=== PATIENT | female | born 1955 | race Caucasian/White ===

== ENCOUNTER 2024-08-23 22:18 | Emergency (ER) | payer OTHER ==
[2024-08-23] MEDS ORDERED: LIDOCAINE 1% 20 ML MDV ONE (22:43)
[2024-08-23] MEDS ORDERED: LIDOCAINE VISCOUS 2% 10ML ORAL SOLN ONE (23:11)
--- NOTE | 2024-08-23 23:51 | EDPHYS ---
Physician Documentation [facility] Name: Louann Arias Age: 68 yrs Sex: Female : 1955 Arrival Date: 08/23/2024 Time: 22:18 Bed 20 Private MD: ED Physician Brent Cortes HPI: 08/23 23:22 This 68 yrs old Female presents to ER via Ambulatory with complaints of ec2 Foreign Body In Ear - left bug. 23:22 Patient arrives today for foreign body in the left ear. States that she feels like ec2 cockroach in there that it had flown in there. Denies any other concerns. She tried to irrigate it out without success. Historical: - Allergies: 22:34 No Known Allergies; lg3 - PMHx: 22:34 Hypertension; Parkinson's disease; lg3 - PSHx: 22:34 None; lg3 - Immunization history:: Adult Immunizations up to date. - Infectious Disease History:: Denies. - Social history:: Smoking status: Patient denies any tobacco usage or history of. Patient uses alcohol, occasionally. Patient/guardian denies using street drugs. ROS: 23:22 Constitutional: as per hpi ec2 Exam: 23:22 Constitutional: GEN: NAD Head: atraumatic Eyes: EOMI Ears: External ears are normal. ec2 Retained foreign body in left ear CV: regular rate LUNGS: no respiratory distress ABD: non-distended SKIN: no evidence of rashes MSK: no evidence of trauma Vital Signs: 22:32 BP 168 / 88; Pulse 63; Resp 16 S; Temp 97.8(O); Pulse Ox 97% on R/A; Weight 63.96 kg lg3 (R); Height 5 ft. 4 in. (R); 08/24 00:02 BP 148 / 93; Pulse 84; Resp 20; Temp 98; Pulse Ox 99% on R/A; aa10 08/23 22:32 Body Mass Index 24.20 (63.96 kg, 162.56 cm) lg3 Procedures: 08/23 23:49 Foreign Body Removal: an insect, from the left ear canal, by using a curette, normal ec2 saline irrigation, The patient tolerated the removal well. MDM: 22:35 Medical Screening Exam initiated ec2 23:22 Data reviewed: vital signs, nurses notes. ED course: Patient arrives today with ec2 retained foreign body in the left ear. Examination as above. Will attempt irrigation to remove.. 23:49 ED course: I was able to successfully remove a large flying insect from the left ear. ec2 Patient discharged home. Return precautions given.. Administered Medications: 22:45 Drug: Lidocaine Infiltration (1 %) 10 ml 20 ml Infiltration once; to bedside Volume: 20 aa10 ml; Route: Infiltration; 08/24 00:15 Follow up: Response: No adverse reaction; Marked relief of symptoms aa10 08/23 23:16 Drug: Viscous Lidocaine Mucous Membrane Liquid (4 %) 10 ml Mucous Membrane once Route: lg3 Mucous Membrane; 08/24 00:14 Follow up: Response: No adverse reaction; Marked relief of symptoms aa10 Disposition Summary: 08/23/24 23:49 Discharge Ordered Notes: Location: Home ec2 Condition: Stable ec2 Diagnosis - Foreign body in left ear ec2 Followup: ec2 - With: Private Physician - When: - Reason: Re-evaluation by your physician Discharge Instructions: - Discharge Summary Sheet ec2 - Ear Foreign Body, [id number] ec2 Forms: - Medication Reconciliation Form ec2 - Antibiotic Education ec2 - Prescription Opioid Use ec2 - Patient Portal Instructions ec2 - Leadership Thank You Letter ec2 Signatures: Angie Lal RN RN lg3 Brent Cortes MD MD ec2 Melquiades Jones RN RN aa10
--- NOTE | 2024-08-23 23:51 | ER ---
Nurse's Notes [facility] Name: Louann Arias Age: 68 yrs Sex: Female : 1955 Arrival Date: 08/23/2024 Time: 22:18 Bed 20 Private MD: Diagnosis: Foreign body in left ear Presentation: 08/23 22:32 Chief complaint: Patient states: unknown bug flew in left ear 1[employer]. used water to lg3 flush it out but i can still feel it. Coronavirus screen: Client denies travel out of the [place] in the last 14 days. At this time, the client does not indicate any symptoms associated with coronavirus-19. Ebola Screen: No symptoms or risks identified at this time. Initial Sepsis Screen: Does the patient meet any 2 criteria? No. Patient's initial sepsis screen is negative. Does the patient have a suspected source of infection? No. Patient's initial sepsis screen is negative. Risk Assessment: Do you want to hurt yourself or someone else? Patient reports no desire to harm self or others. Onset of symptoms was August 23, 2024. 22:32 Method Of Arrival: Ambulatory lg3 22:32 Acuity: POOL 4 lg3 Triage Assessment: 22:34 General: Appears in no apparent distress. comfortable, Behavior is calm, cooperative. lg3 Pain: Complains of pain in left ear Pain does not radiate. EENT: Reports bug in left ear. Neuro: No deficits noted. Flores Agitation-Sedation Scale (RASS): 0 - Alert and Calm Level of Consciousness is awake, alert, obeys commands, Oriented to person, place, time, situation. Cardiovascular: No deficits noted. Denies chest pain, shortness of breath, Capillary refill < 3 seconds Clubbing of nail beds is absent JVD is absent Patient's skin is warm and dry. Respiratory: No deficits noted. Airway is patent Respiratory effort is even, unlabored, Respiratory pattern is regular, symmetrical. GI: No deficits noted. No signs and/or symptoms were reported involving the gastrointestinal system. : No signs and/or symptoms were reported regarding the genitourinary system. Derm: No deficits noted. No signs and/or symptoms reported regarding the dermatologic system. Skin is intact, is healthy with good turgor, Skin is dry, Skin is normal, Skin temperature is warm. Musculoskeletal: No deficits noted. No signs and/or symptoms reported regarding the musculoskeletal system. Circulation, motion, and sensation intact. Range of motion: intact in all extremities. Historical: - Allergies: 22:34 No Known Allergies; lg3 - PMHx: 22:34 Hypertension; Parkinson's disease; lg3 - PSHx: 22:34 None; lg3 - Immunization history:: Adult Immunizations up to date. - Infectious Disease History:: Denies. - Social history:: Smoking status: Patient denies any tobacco usage or history of. Patient uses alcohol, occasionally. Patient/guardian denies using street drugs. Screenin/12 00:06 [facility] ED Fall Risk Assessment (Adult) History of falling in the last 3 months, aa10 including since admission No falls in past 3 months (0 pts) Confusion or Disorientation No (0 pts) Intoxicated or Sedated No (0 pts) Impaired Gait No (0 pts) Mobility Assist Device Used No (0 pt) Altered Elimination No (0 pt) Score/Fall Risk Level 0 - 2 = Low Risk Oriented to surroundings, Maintained a safe environment, Educated pt \T\ family on fall prevention, incl call for assistance when getting out of bed, Assessed \T\ reinforced patient's understanding of fall precautions, Provided non-skid footwear, Hourly rounding (assess needs \T\ fall precautionary measures) done. Abuse screen: Denies threats or abuse. Denies injuries from another. Nutritional screening: No deficits noted. Tuberculosis screening: No symptoms or risk factors identified. Assessment: 00:05 General: Appears in no apparent distress. uncomfortable, well groomed, well developed, aa10 Behavior is calm, cooperative, appropriate for age. Pain: Complains of pain in left ear. Neuro: No deficits noted. 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 Gait is steady, Speech is normal. Cardiovascular: No deficits noted. Capillary refill < 3 seconds. Respiratory: No deficits noted. Airway is patent. EENT: Ear canal w/ foreign body noted from right ear. Vital Signs: 08/23 22:32 BP 168 / 88; Pulse 63; Resp 16 S; Temp 97.8(O); Pulse Ox 97% on R/A; Weight 63.96 kg lg3 (R); Height 5 ft. 4 in. (R); 08/24 00:02 BP 148 / 93; Pulse 84; Resp 20; Temp 98; Pulse Ox 99% on R/A; aa10 08/23 22:32 Body Mass Index 24.20 (63.96 kg, 162.56 cm) lg3 ED Course: 08/23 22:21 Patient arrived in ED. im 22:34 Triage completed. lg3 22:34 Arm band placed on right wrist. lg3 22:35 Brent Cortes MD is Attending Physician. ec2 08/24 00:07 Assist provider with foreign body removal of an insect from left ear canal. using aa10 lidocaine flush to the ear, saline flush repeatedly and removal with a tweezer .full sized insect removed from the ear canal. Patient did not have IV access during this emergency room visit. 00:09 Patient has correct armband on for positive identification. Allergy band placed. Fall aa10 risk band placed. Placed in gown. Bed in low position. Call light in reach. Side rails up X2. Provided Education on: about plan of care. Administered Medications: 08/23 22:45 Drug: Lidocaine Infiltration (1 %) 10 ml 20 ml Infiltration once; to bedside Volume: 20 aa10 ml; Route: Infiltration; 08/24 00:15 Follow up: Response: No adverse reaction; Marked relief of symptoms aa10 08/23 23:16 Drug: Viscous Lidocaine Mucous Membrane Liquid (4 %) 10 ml Mucous Membrane once Route: lg3 Mucous Membrane; 08/24 00:14 Follow up: Response: No adverse reaction; Marked relief of symptoms aa10 Medication: 00:08 VIS not applicable for this client. aa10 Outcome: 08/23 23:49 Discharge ordered by . ec2 08/24 00:14 Discharged to home ambulatory, aa10 Condition: good Discharge instructions given to patient, Instructed on discharge instructions, 00:15 Patient left the ED. aa10 Signatures: Angie Lal, RN RN lg3 Neris Jade Brent Cortes MD MD ec2 Melquiades Jones RN RN aa10
[2024-08-24 10:30] VITALS: BP 148/93; TEMP 98; O2SAT 99
== END 2024-08-24 00:15 | disposition home or self-care (01) ==
LOC: ER 22:18
DX: T16.2XXA Foreign body in left ear, initial encounter (principal)
CPT/HCPCS: 99283; 69200; J2003